=== PATIENT | female | born 1975 | race Caucasian/White ===

== ENCOUNTER 2016-08-17 02:03 | Inpatient (IN) ==
[2016-08-17 02:25] LABS: Bilirubin,Urine Small (Negative); Blood,Urine Negative (Negative); Clarity,Urine Clear (Clear); Color,Urine Yellow (Yellow); Glucose,Urine (UA) Normal (Normal); Ketones,Urine Negative (Negative); Leukocyte Esterase,Urine Moderate (Negative); Nitrite,Urine Negative (Negative); Protein,Urine Negative (Neg-Trace); Specific Gravity,Urine 1.016 (1.010-1.025); Urobilinogen,Urine Normal (Normal)
[2016-08-17 02:27] LABS: Bacteria,Urine None Seen per hpf (None-Few); Hyaline Casts,Urine None Seen per lpf (None-Few); Squamous Epithelial Cell,Urine Many per lpf (None-Few); WBC,Urine 15-30 per hpf (0-3)
[2016-08-17] MEDS ORDERED: *HR* OxyCODONE/APAP 5/325 TABLET PO ONE (02:56)
[2016-08-17] MEDS ORDERED: Ketorolac 30 MG/ML VIAL IM ONE (02:56)
[2016-08-17 03:34] LABS: Basophils # 0.1 K/mcL (0.0-0.2); Basophils % 0.3 %; Eosinophils # 0.2 K/mcL (0.0-0.6); Eosinophils % 0.8 %; Hematocrit 38.1 % (35.3-44.9); Hemoglobin 12.3 g/dL (11.5-15.4); Immature Granulocytes % 0.4 % (0-4); Lymphocytes # 3.5 K/mcL (0.6-4.6); Mean Corpuscular HGB Conc 32.3 g/dL (31.6-35.5); Mean Corpuscular Hemoglobin 26.7 pg (28.0-33.3); Mean Corpuscular Volume 82.8 fL (83.0-100.0); Mean Platelet Volume 9.4 fL (9.4-12.4); Monocytes # 0.9 K/mcL (0.0-1.3); Monocytes % 4.5 %; Neutrophils # 15.8 K/mcL (1.6-8.9); Platelet Count 349 K/mcL (140-400); Red Cell Distribution Width 18.5 % (11.5-14.5)
[2016-08-17] MEDS ORDERED: 0.9 % Sodium Chloride 1,000 ML IVC ONE (03:41)
[2016-08-17 03:44] LABS: BUN/Creatinine Ratio 8 (6-26); Blood Urea Nitrogen 7 mg/dL (7-20); Calcium 9.4 mg/dL (8.6-10.8); Carbon Dioxide 22 mEq/L (19-29); Chloride 106 mEq/L (98-109); Glucose 98 mg/dL (70-99); Osmolality,Calculated 286 (280-300); Potassium 3.9 mEq/L (3.5-4.5); Sodium 139 mEq/L (136-145); eGFR For African Americans > 60 (> 60); eGFR For Non-African Americans > 60 (> 60)
[2016-08-17] MEDS ORDERED: *HR* HYDROmorphone 2 MG/ML SYRINGE IVP ONE (03:56)
--- NOTE | 2016-08-17 03:57 | Emergency Department Note ---
START Narrative - START START: I examined this patient and my medical decision-making was reviewed with the EVENTS ADMINISTRATIVE ASSISTANT/PA/Advanced Practice Nurse/Resident Physician. I agree with the documented findings, disposition and treatment plan as described except to the extent set forth below. Patient to ED with bilateral flank pain. Patient seen a few days ago and diagnosed with pyelonephritis. She has been taking Keflex beginning worse. On examination she is rocking in the bed and very uncomfortable. Abdomen soft. Bilateral CVA tenderness with percussion. Plan. Patient appears without outpatient treatment. White count 20,000. She meets sepsis criteria. IV antibiotic and admit.
[2016-08-17] MEDS ORDERED: 0.9 % Sodium Chloride 1,000 ML IVC SCH (04:00)
--- NOTE | 2016-08-17 04:12 | Emergency Department Note ---
Disposition Clinical Impression: Pyelonephritis Disposition: Admitted As Inpatient Referrals: Minesh Terry CNP [Primary Care Provider] - Forms: ED Satisfaction Letter Time of Disposition: 04:18 Female Urogenital HPI - General Chief complaint: ED Urogenital-Female Stated complaint: "bilateral kidney pain" Time Seen by Provider: 08/17/16 02:49 Source: patient Mode of arrival: ambulatory Limitations: no limitations Nursing Notes Reviewed: Yes Vital Signs Reviewed: Yes - History of Present Illness HPI Narrative: Patient is a 41-year-old female that ambulates to the ED with chief complaint bilateral flank pain, dysuria, urinary urgency/frequency, nausea and fever 1 week. Patient states that she was seen in our ER on 08/13/16 and diagnosed with pyelonephritis. Patient was discharged home with Keflex. Patient returns here today because of worsening symptoms. States highest recorded temperature was 100.1 degrees Fahrenheit today. Denies any chest pain, shortness of breath, vaginal discharge, weakness, vomiting or diarrhea. History of hysterectomy Pt Subjective Complaint: dysuria, "UTI", other (Bilateral flank pain) Onset (ago): week(s) Radiation: suprapubic Severity: moderate Severity scale (1-10): 9 Quality: cramping, burning Duration: intermittent Improves with: none Worsens with: none Urinary Symptoms: dysuria, urgency, frequency, hematuria, foul smelling urine, difficulty urinating, flank pain Sexual activity: yes : no Associated symptoms: Reports: denies other symptoms, abdominal pain (Lower abdominal cramping), nausea/vomiting (Nausea no vomiting), fever/chills. Denies : abnormal vaginal discharge, abnormal vaginal bleeding, headaches, loss of appetite, , rash, seizure, shortness of breath, syncope, weakness - Related Data Home Medications Medication Instructions Recorded Confirmed Amitriptyline [Elavil] 150 mg PO HS 01/15/16 05/28/16 FLUoxetine HCl [Prozac] 40 mg PO HS 01/15/16 05/28/16 Gabapentin [Neurontin] 600 mg PO TID 01/15/16 05/28/16 Albuterol Sulfate [Ventolin Hfa] 2 puff IH Q4H PRN 05/28/16 05/28/16 Budesonide/Formoterol 160/4.5 2 puff IH BIDR 05/28/16 05/28/16 [Symbicort 160/4.5] Buspirone HCl [Buspar] 10 mg PO BID PRN 05/28/16 05/28/16 DiphenhydraMINE [Benadryl] 25 mg PO BID PRN 05/28/16 05/28/16 Docusate [Colace] 100 mg PO BID PRN 05/28/16 05/28/16 Ipratropium/Albuterol Neb [Duoneb] 3 ml IH Q6HR PRN 05/28/16 05/28/16 LORazepam [Ativan] 1 mg PO TID PRN 05/28/16 05/28/16 Nitroglycerin [Nitrostat] 0.4 mg SL AD PRN 05/28/16 05/28/16 Promethazine HCl 12.5 - 25 mg PO Q8H PRN 05/28/16 05/28/16 Ranitidine HCl [Zantac] 150 mg PO HS 05/28/16 05/28/16 Previous Rx's Medication Instructions Recorded Cephalexin [Keflex] 500 mg PO BID 10 Days 08/13/16 Phenazopyridine HCl [Pyridium] 200 mg PO TIDAC #6 tab 08/13/16 Allergies Allergy/AdvReac Type Severity Reaction Status Date / Time No Known Allergies Allergy Verified 08/17/16 02:10 All systems ED: reviewed and negative except as stated. Constitutional: Reports: fever, chills Cardiovascular: Denies: chest pain Respiratory: Denies: dyspnea Gastrointestinal: Reports: abdominal pain, nausea. Denies: vomiting, diarrhea, constipation, hematemesis, melena, hematochezia Genitourinary: Reports: urgency, dysuria, frequency, hematuria. Denies: discharge, dyspareunia, genital lesions Musculoskeletal: Reports: back pain Integumentary: Denies: rash Neurological: Denies: weakness, numbness, paresthesias Past Medical History - Past Medical History Source: patient Medical history: Reports: COPD, GERD, hypertension, seizures, other Surgical history: Reports: appendectomy, cholecystectomy, herniorrhaphy, hysterectomy, other Psychiatric history: Reports: anxiety, depression, panic disorder ENTRY SPECIALIST history: Reports: endometriosis - Social History Smoking Status: Current every day smoker Smokeless Tobacco Status: No Alcohol use: Reports: none Drug use: Reports: none Physical Exam - General Limitations: no limitations General appearance: alert, in no apparent distress - Head Head exam: normal inspection - Eye Eye exam: Present: normal appearance - ENT ENT exam: mucous membranes moist - Neck Neck exam: Present: normal inspection - Chest Chest inspection: Present: symmetric chest wall rise - Respiratory Respiratory exam: Present: normal lung sounds bilaterally - Cardiovascular Cardiovascular exam: Present: normal rhythm, tachycardia - Abdominal Exam Abdominal exam: Present: soft, tenderness (Mild Lower abdominal tenderness with palpation), normal bowel sounds. Absent: distention, guarding, rebound, rigidity - Extremities Exam Extremities exam: Present: normal inspection - Expanded Lower Extremity Exam Gait: observed and normal - Back Exam Back exam: Present: normal inspection, full ROM, CVA tenderness (R), CVA tenderness (L). Absent: rashes - Neurological Exam Neurological exam: Present: alert, oriented X3, CN II-XII intact, normal gait - Psychiatric Psychiatric exam: Present: normal affect, normal mood - Skin Skin exam: Present: warm, dry, intact, normal color. Absent: rash, cyanosis, diaphoresis Course - Reevaluation(s) Reevaluation #1: Patient is a 41-year-old female that ambulates to the ED with chief complaint bilateral flank pain, dysuria, urinary urgency/frequency, nausea and fever 1 week. Patient states that she was seen in our ER on 08/13/16 and diagnosed with pyelonephritis. Patient was discharged home with Keflex. Patient returns here today because of worsening symptoms. States highest recorded temperature was 100.1 degrees Fahrenheit today. Denies any chest pain, shortness of breath, vaginal discharge, weakness, vomiting or diarrhea. History of hysterectomy Patient is a 41-year-old female. Afebrile. Alert and oriented 3. No signs of dehydration. Heart: Tachycardia. Lungs CTAB : Normal inspection, soft, diffuse lower abdominal tenderness with palpation. No guarding or rebound noted. Normal bowel sounds. Back normal inspection, right and left cva tenderness with palpation. Extremities within normal limits. Neuro no focal neurological deficits noted on exam. Labs, UA ordered. IV fluids, pain and nausea medications given. Plan to reevaluate. Reviewed previous encounter from 08/13/16. Previous urine culture showed mixed margaret. UA indicate UTI. WBC 20,000. Repeat HR 71 CT shows no definite acute intra-abdominal or intrapelvic process. Punctate 2 mm nonobstructing calculus within the right kidney lower pole, without evidence of ureteral calculus or hydronephrosis Blood cultures obtained. Cipro and Rocephin given in ED. Plan to admit for failed outpatient treatment of UTI and sepsis. Patient agrees to treatment plan. Pain has improved. Dr. Russell had [id number] time with patient and agrees with assessment and treatment plan. Discussed case with the hospitalist. He will accept the patient. No other request at this time. Vital Signs Temperature 98.8 F 08/17/16 02:07 Pulse Rate 127 08/17/16 02:07 Respiratory Rate 18 08/17/16 02:07 Blood Pressure 130/93 08/17/16 02:07 O2 Sat by Pulse Oximetry 94 08/17/16 02:07 Temperature 98.8 F 08/17/16 02:07 Pulse Rate 71 08/17/16 04:47 Respiratory Rate 18 08/17/16 04:47 Blood Pressure 107/77 08/17/16 04:47 O2 Sat by Pulse Oximetry 99 08/17/16 04:47 Oxygen Delivery Oxygen Delivery Room Air Urogenital-Female - Medical Records Medical records reviewed: Yes I reviewed the patient's medical records. - Lab Data Lab results reviewed: Yes I reviewed the patient's lab results. Result diagrams: 08/17/16 03:28 08/17/16 03:28 Lab Results 08/17/16 08/17/16 08/17/16 Range/Units 02:20 03:28 03:28 WBC 20.5 H (4.3-11.1) K/mcL RBC 4.60 (3.82-4.97) M/mcL Hgb 12.3 (11.5-15.4) g/dL Hct 38.1 (35.3-44.9) % MCV 82.8 L (83.0-100.0) fL MCH 26.7 L (28.0-33.3) pg MCHC 32.3 (31.6-35.5) g/dL RDW 18.5 H (11.5-14.5) % Plt Count 349 (140-400) K/mcL MPV 9.4 (9.4-12.4) fL Immature Gran % 0.4 (0-4) % Seg Neutrophils % 77.0 % Lymphocytes % 17.0 % Monocytes % 4.5 % Eosinophils % 0.8 % Basophils % 0.3 % Neutrophils # 15.8 H (1.6-8.9) K/mcL Lymphocytes # 3.5 (0.6-4.6) K/mcL Monocytes # 0.9 (0.0-1.3) K/mcL Eosinophils # 0.2 (0.0-0.6) K/mcL Basophils # 0.1 (0.0-0.2) K/mcL Sodium 139 (136-145) mEq/L Potassium 3.9 (3.5-4.5) mEq/L Chloride 106 (98-109) mEq/L Carbon Dioxide 22 (19-29) mEq/L BUN 7 (7-20) mg/dL Creatinine 0.85 (0.57-1.11) mg/dL Est GFR ( Amer) > 60 (> 60) Est GFR (Non-Af Amer) > 60 (> 60) BUN/Creatinine Ratio 8 (6-26) Glucose 98 (70-99) mg/dL Calculated Osmolality 286 (280-300) Lactic Acid (0.5-2.2) mmol/L Calcium 9.4 (8.6-10.8) mg/dL Urine Color Yellow (Yellow) Urine Clarity Clear (Clear) Urine pH 6.0 (5.0-8.0) pH Units Ur Specific [place] 1.016 (1.010-1.025) Urine Protein Negative (Neg-Trace) mg/dL Urine Glucose (UA) Normal (Normal) mg/dL Urine Ketones Negative (Negative) mg/dL Urine Blood Negative (Negative) Urine Nitrite Negative (Negative) Urine Bilirubin Small H (Negative) Urine Urobilinogen Normal (Normal) mg/dL Ur Leukocyte Esterase Moderate H (Negative) Urine Microscopic RBC 5-15 H (0-3) per hpf Urine Microscopic WBC 15-30 H (0-3) per hpf Ur Squamous Epith Cells Many H (None-Few) per lpf Urine Bacteria None Seen (None-Few) per hpf Hyaline Casts None Seen (None-Few) per lpf Ur Culture Indicated? YES A (NO) 08/17/16 Range/Units 04:49 WBC (4.3-11.1) K/mcL RBC (3.82-4.97) M/mcL Hgb (11.5-15.4) g/dL Hct (35.3-44.9) % MCV (83.0-100.0) fL MCH (28.0-33.3) pg MCHC (31.6-35.5) g/dL RDW (11.5-14.5) % Plt Count (140-400) K/mcL MPV (9.4-12.4) fL Immature Gran % (0-4) % Seg Neutrophils % % Lymphocytes % % Monocytes % % Eosinophils % % Basophils % % Neutrophils # (1.6-8.9) K/mcL Lymphocytes # (0.6-4.6) K/mcL Monocytes # (0.0-1.3) K/mcL Eosinophils # (0.0-0.6) K/mcL Basophils # (0.0-0.2) K/mcL Sodium (136-145) mEq/L Potassium (3.5-4.5) mEq/L Chloride (98-109) mEq/L Carbon Dioxide (19-29) mEq/L BUN (7-20) mg/dL Creatinine (0.57-1.11) mg/dL Est GFR ( Amer) (> 60) Est GFR (Non-Af Amer) (> 60) BUN/Creatinine Ratio (6-26) Glucose (70-99) mg/dL Calculated Osmolality (280-300) Lactic Acid 1.8 (0.5-2.2) mmol/L Calcium (8.6-10.8) mg/dL Urine Color (Yellow) Urine Clarity (Clear) Urine pH (5.0-8.0) pH Units Ur Specific [place] (1.010-1.025) Urine Protein (Neg-Trace) mg/dL Urine Glucose (UA) (Normal) mg/dL Urine Ketones (Negative) mg/dL Urine Blood (Negative) Urine Nitrite (Negative) Urine Bilirubin (Negative) Urine Urobilinogen (Normal) mg/dL Ur Leukocyte Esterase (Negative) Urine Microscopic RBC (0-3) per hpf Urine Microscopic WBC (0-3) per hpf Ur Squamous Epith Cells (None-Few) per lpf Urine Bacteria (None-Few) per hpf Hyaline Casts (None-Few) per lpf Ur Culture Indicated? (NO) - Radiology Data Radiology results reviewed: Yes I reviewed the patient's radiology results.
[2016-08-17] MEDS ORDERED: Ondansetron 4 MG/2 ML VIAL IVP PRN (08:46)
[2016-08-17] MEDS ORDERED: Ipratropium/Albuterol Neb 3 ML IH PRN (09:24)
--- NOTE | 2016-08-17 09:32 | Internal Med History&Physical ---
Date of Encounter: 08/17/16 Time of Encounter: 09:30 Assessment and Plan (1) COPD (chronic obstructive pulmonary disease) Current visit: No Status: Chronic Stable normoactive wheezing continue PRN nebulizer treatments. Qualifiers: Qualified Code(s): J44.9 - Chronic obstructive pulmonary disease, unspecified (2) Pyelonephritis Current visit: Yes Status: Acute Patient presents with bilateral flank pain frequency urgency and fever up to 100.1. She had failed outpatient 3 days of antibiotic with keflex. She has prior history of E. coli and enterococcus in urine. She has a white count of 20 ,000 and meet sepsis criteria. I will therefore start the patient on broad- spectrum antibiotics to cover for Gram negatives with cefepime and cover for enterococcus with vancomycin. CT scan was performed showed no evidence of obstructive uropathy. (3) Sepsis Current visit: No Status: Acute Patient meets criteria for sepsis white count 20,000 tachycardic on presentation and sources urine. 2 L of normal saline were given in the emergency room. Continue normal saline 100 mls an hour. Broad-spectrum antibiotics. She is not hypotensive. Follow urine output. Qualifiers: Qualified Code(s): A41.9 - Sepsis, unspecified organism Internal Medicine - H&P: HPI Chief complaint: flank pain, dysuria History of present illness: Ms. Silva is a 41 year old female presents to the emergency room today with the main complain of bilateral flank pain. Patient was diagnosed with rain check infection 5 days ago and was started on Keflex to which she was compliance for the past 3 days. Patient notices no improvement in her symptoms. Continues to have bilateral flank pain, fevers up 200.1 at home, chills, nausea in addition to urinary symptoms in the form of urgency frequency. She denies any increase sputum production. CT scan performed emergency room shows no evidence of obstructive uropathy. Past Med Surg Social Fam HX - Past Medical History Medical history: COPD, GERD, hypertension, seizures, other Psychiatric history: anxiety, depression, panic disorder - Past Surgical History Surgical History: appendectomy, cholecystectomy, herniorrhaphy, hysterectomy, other - Social History Smoking Status: Current every day smoker Packs per day: 1.2 Smokeless Tobacco Status: No Alcohol use: none Drug use: none - Family History Father Living Status: Still Living Hx Family Cardiac Disorders: Yes (pacemaker) Mother Hx Family Cardiac Disorders: Yes (atrial fibrillation) Internal Medicine - H&P: Meds Amitriptyline [Elavil] 150 mg PO HS 01/15/16 [History] FLUoxetine HCl [Prozac] 40 mg PO HS 01/15/16 [History] Gabapentin [Neurontin] 600 mg PO TID 01/15/16 [History] Albuterol Sulfate [Ventolin Hfa] 2 puff IH Q4H PRN 05/28/16 [History] Budesonide/Formoterol 160/4.5 [Symbicort 160/4.5] 2 puff IH BIDR 05/28/16 [ History] Buspirone HCl [Buspar] 10 mg PO BID PRN 05/28/16 [History] DiphenhydraMINE [Benadryl] 25 mg PO BID PRN 05/28/16 [History] Docusate [Colace] 100 mg PO BID PRN 05/28/16 [History] Ipratropium/Albuterol Neb [Duoneb] 3 ml IH Q6HR PRN 05/28/16 [History] LORazepam [Ativan] 1 mg PO TID PRN 05/28/16 [History] Nitroglycerin [Nitrostat] 0.4 mg SL AD PRN 05/28/16 [History] Promethazine HCl 12.5 - 25 mg PO Q8H PRN 05/28/16 [History] Ranitidine HCl [Zantac] 150 mg PO HS 05/28/16 [History] Cephalexin [Keflex] 500 mg PO BID 10 Days 08/13/16 [Rx] Phenazopyridine HCl [Pyridium] 200 mg PO TIDAC #6 tab 08/13/16 [Rx] Allergies No Known Allergies Allergy (Verified 08/17/16 02:10) All Systems PM: A 10-system review of systems was performed and is negative for pertinent findings except as documented above in the HPI. Review of systems: 10 point review of systems is negative except for HPI. - Constitutional Vitals: Temp Pulse Resp BP Pulse Ox 97.3 F L 83 18 112/62 93 08/17/16 07:57 08/17/16 07:57 08/17/16 07:57 08/17/16 07:57 08/17/16 07:57 Exam: Gen.: patient is alert oriented times 3 not in distress. Cardiac: normal S1 S2 no additional sounds or murmurs chest: fair air entry. no active wheezing. No crackles or bronchial breathing. abdomen: soft tenderness in left lower quadrant Back: bilateral CVA tenderness neuro: no focal deficit Internal Med - H&P Results - Labs CBC & Chem 7: 08/17/16 03:28 08/17/16 03:28
[2016-08-17] MEDS: Budesonide/Formoterol 160/4.5 MDI IH SCH ×2 (11:16→20:22)
[2016-08-17] MEDS: *HR* OxyCODONE/APAP 5/325 TABLET PO PRN ×2 (11:31→20:32)
[2016-08-17] MEDS: Vancomycin 1,500 MG in D5% in Water 250 ML IVPB SCH (11:32)
[2016-08-17] MEDS ORDERED: Aminoglycoside Consult 1 EACH MC ONE (11:59)
[2016-08-17] MEDS: Gabapentin 300 MG CAPSULE PO SCH ×2 (14:37→20:33)
[2016-08-17] MEDS: *HR* Heparin 5,000 UNIT/ML VIAL SQ SCH ×2 (14:37→22:16)
[2016-08-17] MEDS: Famotidine 20 MG/2 ML VIAL IVP SCH (17:17)
[2016-08-17] MEDS: Cefepime HCl 1,000 MG in D5% in Water (Mini-Bag+) 100 ML IVPB SCH (17:17)
[2016-08-17] MEDS: 0.9 % Sodium Chloride 1,000 ML IVC SCH (19:59)
[2016-08-17] MEDS ORDERED: clonazePAM 1 MG TABLET PO PRN (20:48)
[2016-08-17] MEDS ORDERED: FLUoxetine 20 MG CAPSULE PO SCH (21:00)
[2016-08-18] MEDS: Vancomycin 1,500 MG in D5% in Water 250 ML IVPB SCH (02:59)
[2016-08-18] MEDS: Cefepime HCl 1,000 MG in D5% in Water (Mini-Bag+) 100 ML IVPB SCH (05:15)
[2016-08-18] MEDS: *HR* Heparin 5,000 UNIT/ML VIAL SQ SCH (05:15)
[2016-08-18] MEDS: Famotidine 20 MG/2 ML VIAL IVP SCH (05:16)
[2016-08-18 06:11] LABS: Basophils % 0.6 %; Eosinophils # 0.5 K/mcL (0.0-0.6); Hematocrit 35.5 % (35.3-44.9); Hemoglobin 11.3 g/dL (11.5-15.4); Immature Granulocytes % 0.5 % (0-4); Lymphocytes # 2.6 K/mcL (0.6-4.6); Lymphocytes % 40.9 %; Mean Corpuscular HGB Conc 31.8 g/dL (31.6-35.5); Mean Corpuscular Volume 84.9 fL (83.0-100.0); Monocytes # 0.5 K/mcL (0.0-1.3); Monocytes % 7.5 %; Neutrophils # 2.7 K/mcL (1.6-8.9); Platelet Count 306 K/mcL (140-400); Red Blood Count 4.18 M/mcL (3.82-4.97); Red Cell Distribution Width 18.6 % (11.5-14.5); Segmented Neutrophils % 42.5 %
[2016-08-18 06:25] LABS: BUN/Creatinine Ratio 14 (6-26); Blood Urea Nitrogen 11 mg/dL (7-20); Calcium 8.6 mg/dL (8.6-10.8); Carbon Dioxide 22 mEq/L (19-29); Chloride 109 mEq/L (98-109); Glucose 122 mg/dL (70-99); Magnesium 2.2 mg/dL (1.6-2.6); Osmolality,Calculated 291 (280-300); Potassium 3.8 mEq/L (3.5-4.5); Sodium 140 mEq/L (136-145); eGFR For African Americans > 60 (> 60); eGFR For Non-African Americans > 60 (> 60)
[2016-08-18] MEDS: Gabapentin 300 MG CAPSULE PO SCH (08:14)
[2016-08-18] MEDS: Budesonide/Formoterol 160/4.5 MDI IH SCH (08:21)
[2016-08-18] MEDS: *HR* OxyCODONE/APAP 5/325 TABLET PO PRN (11:12)
[2016-08-18] MEDS: 0.9 % Sodium Chloride 1,000 ML IVC SCH (11:15)
[2016-08-18 11:30] VITALS: BP 147/91
[2016-08-18] MEDS ORDERED: Nicotine 21 MG PATCH.TD24 TD SCH (11:45)
--- NOTE | 2016-08-18 11:53 | Discharge Summary ---
Date of Encounter: 08/19/16 Time of Encounter: 11:48 - Discharge Diagnosis (1) Sepsis Priority: Primary Status: Acute Qualifiers: Sepsis type: sepsis due to unspecified organism Qualified Code(s): A41.9 - Sepsis, unspecified organism (2) Pyelonephritis Priority: Primary Status: Acute - Discharge Medications Home Medications: FLUoxetine HCl [Prozac] 40 mg PO HS 01/15/16 [History] Gabapentin [Neurontin] 600 mg PO TID 01/15/16 [History] Albuterol Sulfate [Ventolin Hfa] 2 puff IH Q4H PRN 05/28/16 [History] Budesonide/Formoterol 160/4.5 [Symbicort 160/4.5] 2 puff IH BIDR 05/28/16 [ History] Buspirone HCl [Buspar] 30 mg PO BID PRN 05/28/16 [History] Docusate [Colace] 100 mg PO BID PRN 05/28/16 [History] Ranitidine HCl [Zantac] 150 mg PO HS 05/28/16 [History] Quetiapine Fumarate [Seroquel] 50 mg PO TID PRN 08/17/16 [History] clonazePAM [Clonazepam] 1 mg PO TID PRN 08/17/16 [History] Nitroglycerin [Nitrostat] 0.4 mg SL ONCE PRN 08/18/16 [History] Promethazine HCl 12.5 - 25 mg PO Q8H PRN 08/18/16 [History] Allergies/Adverse Reactions: Allergies No Known Allergies Allergy (Verified 08/17/16 02:10) Date of admission: 08/17/16 09:21 Primary care physician: Minesh Terry CNP Discharging clinician: Evangelist Wesley Anticipated date of discharge: 08/18/16 - Patient Status Disposition: Left Against Medical Advice Condition: Fair Functional capacity at discharge: independent ambulation Overall status at discharge: patient is back to baseline - Discharge Instructions Follow Up With: Minesh Terry CNP [Primary Care Provider] - - Diet and Activity Activity: resume usual activities as tolerated Diet: advance to your usual diet Interval History: Patient admitted with sepsis secondary to pyelonephritis. Patient was treated with IV antibiotics overnight, at the bedside patient reports resolution of pain today. Antibiotics was disease completed today and plan was to observe for 1 day, however patient signed out AMA. Hospital course: Ms. Silva is a 41 year old female - Time Spent with Patient Total time spent providing and/or coordinating discharge services: - Constitutional Vitals: Temp Pulse Resp BP Pulse Ox 98.2 F 88 18 147/91 96 08/18/16 11:26 08/18/16 11:26 08/18/16 11:26 08/18/16 11:26 08/18/16 11:26 Exam: Exam could not be completed as patient signed out AMA
[2016-08-18] MEDS ORDERED: Ampicillin/Sulbactam 3,000 MG in 0.9 % Sodium Chloride Mini Bag 100 ML IVPB SCH (12:00)
[2016-08-18] MEDS ORDERED: Vancomycin 1,500 MG in D5% in Water 250 ML IVPB SCH (15:00)
== END 2016-08-18 12:00 | disposition left against medical advice (07) | DRG 720 ==
LOC: 3ANU 02:03 → EMEROO 02:03 → 3ANU 05:40
PROVIDERS: ADMIT Internal Medicine; ATTEND Internal Medicine Endocrinology, Diabetes & Metabolism

== ENCOUNTER 2017-05-16 21:06 | Observation (INO) ==
[2017-05-16 21:42] LABS: Basophils # 0.1 K/mcL (0.0-0.2); Basophils % 0.9 %; Eosinophils # 0.7 K/mcL (0.0-0.6); Eosinophils % 7.4 %; Hematocrit 37.4 % (35.3-44.9); Hemoglobin 12.4 g/dL (11.5-15.4); Immature Granulocytes % 0.2 % (0-4); Lymphocytes # 3.4 K/mcL (0.6-4.6); Lymphocytes % 35.6 %; Mean Corpuscular HGB Conc 33.2 g/dL (31.6-35.5); Mean Corpuscular Hemoglobin 28.2 pg (28.0-33.3); Mean Platelet Volume 9.1 fL (9.4-12.4); Monocytes # 0.7 K/mcL (0.0-1.3); Monocytes % 7.2 %; Neutrophils # 4.7 K/mcL (1.6-8.9); Platelet Count 362 K/mcL (140-400); Red Cell Distribution Width 15.7 % (11.5-14.5); Segmented Neutrophils % 48.7 %
[2017-05-16 21:49] LABS: Prothrombin Time 11.2 Seconds (9.4-12.1)
[2017-05-16] MEDS ORDERED: *HR* Nalbuphine 20 MG/ML AMPUL IVP ONE ×2 (21:52→21:53)
[2017-05-16] MEDS ORDERED: Aspirin 325 MG TABLET PO ONE (21:53)
[2017-05-16 22:04] LABS: Troponin I < 0.03 ng/mL (< 0.04)
[2017-05-16 22:06] LABS: BUN/Creatinine Ratio 15 (6-26); Blood Urea Nitrogen 15 mg/dL (6-20); Calcium 9.5 mg/dL (8.6-10.3); Carbon Dioxide 22 mEq/L (23-29); Chloride 108 mEq/L (98-107); Glucose 118 mg/dL (70-105); Osmolality,Calculated 288 (280-300); Potassium 4.1 mEq/L (3.5-5.1); Sodium 138 mEq/L (136-145); eGFR For African Americans > 60 (> 60); eGFR For Non-African Americans > 60 (> 60)
[2017-05-16] MEDS ORDERED: methylPREDNISolone 125 MG/2 ML VIAL IVP ONE (22:10)
[2017-05-16] MEDS ORDERED: Nitroglycerin 1 INCH/GM PACKET TP ONE (22:41)
--- NOTE | 2017-05-16 22:41 | Emergency Department Note ---
Disposition Clinical Impression: Unstable angina Disposition: Admitted As Inpatient Condition: Fair Referrals: Minesh Terry CNP [Primary Care Provider] - Time of Disposition: 22:41 Chest Pain HPI - General Chief Complaint: ED Chest Pain Stated Complaint: chest pain Time Seen by Provider: 05/16/17 21:35 Source: patient, family Mode of arrival: ambulatory Limitations: no limitations Vital Signs Reviewed: Yes Nursing Notes Reviewed: Yes - History of Present Illness HPI Narrative: 42-year-old female presents him observe for chest pain. When started around 3: 30 today while sitting at home. She describes it as left anterior chest wall that radiates up into her neck and left jaw. She took nitroglycerin home without any relief. Aspirin aspirin was given in route by EMS. She states she has a history of a previous cardiac catheter years ago that she had done for chest pain but they did not have to put any Shanelle. Nothing seems to worsen her symptoms. She does feels short of breath with it. Some diaphoresis she states today. No vomiting. She does have smoking history and currently smokes at least 10 cigarettes per day. Severity scale (1-10): 9 - Related Data Home Medications Medication Instructions Recorded Confirmed FLUoxetine HCl [Prozac] 40 mg PO BID 01/15/16 04/22/17 Buspirone HCl [Buspar] 30 mg PO BID PRN 05/28/16 04/22/17 Budesonide/Formoterol 160/4.5 2 puff IH BIDR 04/22/17 04/22/17 [Symbicort 160/4.5] Dicyclomine [Bentyl] 10 mg PO QID 04/22/17 04/22/17 Diphenhydramine HCl [Z-Sleep] 25 mg PO DAILY PRN 04/22/17 04/22/17 Ipratropium/Albuterol Neb [Duoneb] 3 ml IH Q6HR 04/22/17 04/22/17 OLANZapine [Zyprexa] 10 mg PO DAILY 04/22/17 04/22/17 Omeprazole [PriLOSEC] 20 mg PO DAILY 04/22/17 04/22/17 Ondansetron HCl 8 mg PO TID PRN 04/22/17 04/22/17 Pravastatin Sodium 10 mg PO HS 04/22/17 04/22/17 Quetiapine Fumarate [Seroquel] 50 mg PO TID 04/22/17 04/22/17 Ziprasidone [Geodon] 20 mg PO HS 04/22/17 04/22/17 diazePAM [Valium] 10 mg PO BID 04/22/17 04/22/17 Allergies Allergy/AdvReac Type Severity Reaction Status Date / Time haloperidol AdvReac Agitated Verified 03/23/17 11:16 Review of Systems: Gen.: No fevers or chills or new weakness Eyes: Denies double vision or any vision changes Ears: Denies any otalgia Pharynx: Denies sore throat CV: Positive for chest pain Respiratory: Denies any cough or sputum production. No shortness of breath. GI: Denies any nausea, vomiting, diarrhea, constipation. Denies abdominal pain Neuro: Denies any headache. No problems with ambulation. No numbness. 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 Pharynx clear with no exudates. Oral mucosa moist. Uvula midline. TMs clear bilaterally. Trachea midline. No lymphadenopathy. Heart: Regular rate and rhythm. Normal S1 and S2. No gallops, rubs, or murmurs. Lungs: Clear to auscultation bilaterally. No evidence of any rhonchi wheezing or rales. No pain on palpation of the chest wall Abdomen: Soft nontender nondistended. Positive bowel sounds. No peritoneal signs. Extremities: No evidence of cyanosis clubbing or edema. Neuro: Cranial nerves II through XII grossly intact. No focal motor or sensory deficits. Speech is clear. Skin: Normal color. dry. Psych: normal mentation. - General Limitations: no limitations General appearance: alert, in no apparent distress Course Vital Signs Temperature 97.3 F L 05/16/17 21:08 Pulse Rate 101 05/16/17 21:08 Respiratory Rate 18 05/16/17 21:08 Blood Pressure 137/88 05/16/17 21:08 O2 Sat by Pulse Oximetry 97 05/16/17 21:08 Temperature 97.3 F L 05/16/17 21:08 Pulse Rate 84 05/16/17 22:28 Respiratory Rate 18 05/16/17 22:28 Blood Pressure 123/93 05/16/17 22:28 O2 Sat by Pulse Oximetry 91 05/16/17 22:28 Oxygen Delivery Oxygen Delivery Room Air Chest Pain - MDM Narrative Medical decision making narrative: Patient's EKG did not reveal any acute abnormalities. Troponin was negative. Chest x-ray negative. Patient had a suspicious story and did not appear well on my exam. Based on her risk factors I feel she needs to be admitted for ACS rule out. - Medical Records Medical records reviewed: Yes I reviewed the patient's medical records. - Lab Data Lab results reviewed: Yes I reviewed the patient's lab results. Result diagrams: 05/16/17 21:32 05/16/17 21:32 Lab Results 05/16/17 05/16/17 05/16/17 Range/Units 21:32 21:32 21:32 WBC 9.6 (4.3-11.1) K/mcL RBC 4.40 (3.82-4.97) M/mcL Hgb 12.4 (11.5-15.4) g/dL Hct 37.4 (35.3-44.9) % MCV 85.0 (83.0-100.0) fL MCH 28.2 (28.0-33.3) pg MCHC 33.2 (31.6-35.5) g/dL RDW 15.7 H (11.5-14.5) % Plt Count 362 (140-400) K/mcL MPV 9.1 L (9.4-12.4) fL Immature Gran % 0.2 (0-4) % Seg Neutrophils % 48.7 % Lymphocytes % 35.6 % Monocytes % 7.2 % Eosinophils % 7.4 % Basophils % 0.9 % Neutrophils # 4.7 (1.6-8.9) K/mcL Lymphocytes # 3.4 (0.6-4.6) K/mcL Monocytes # 0.7 (0.0-1.3) K/mcL Eosinophils # 0.7 H (0.0-0.6) K/mcL Basophils # 0.1 (0.0-0.2) K/mcL PT 11.2 (9.4-12.1) Seconds INR 1.0 APTT 34.0 (26.0-36.0) Seconds Sodium 138 (136-145) mEq/L Potassium 4.1 (3.5-5.1) mEq/L Chloride 108 H (98-107) mEq/L Carbon Dioxide 22 L (23-29) mEq/L BUN 15 (6-20) mg/dL Creatinine 0.98 (0.60-1.20) mg/dL Est GFR ( Amer) > 60 (> 60) Est GFR (Non-Af Amer) > 60 (> 60) BUN/Creatinine Ratio 15 (6-26) Glucose 118 H (70-105) mg/dL Calculated Osmolality 288 (280-300) Calcium 9.5 (8.6-10.3) mg/dL Troponin I < 0.03 (< 0.04) ng/mL - Radiology Data Radiology results reviewed: Yes I reviewed the patient's radiology results. - EKG Data EKG attestation: Yes I reviewed and interpreted this EKG. EKG results narrative: EKG shows a rate of 97. No sinus rhythm. Normal axis. AL interval 146. QRS 96. QTC 393. No signs of ischemia
[2017-05-17] MEDS ORDERED: Ibuprofen 400 MG TABLET PO ONE (05:07)
[2017-05-17] MEDS ORDERED: Naloxone 0.4 MG/ML INJ IVP PRN (08:25)
[2017-05-17] MEDS ORDERED: Acetaminophen 325 MG TABLET PO PRN (08:25)
[2017-05-17] MEDS: *HR* HYDROcodone/Acet 5/325 mg TABLET PO PRN ×2 (09:45→20:22)
[2017-05-17] MEDS ORDERED: Ondansetron ODT 4 MG TAB.RAPDIS PO PRN (10:23)
[2017-05-17] MEDS ORDERED: Nicotine 14 MG PATCH.TD24 TD SCH (10:30)
--- NOTE | 2017-05-17 10:45 | Internal Med History&Physical ---
Date of Encounter: 05/17/17 Time of Encounter: 10:40 Assessment and Plan (1) Depression Current visit: Yes Status: Acute Continue with buspirone and fluoxetine. Qualifiers: Depression Type: major depressive disorder Major depression recurrence: recurrent Active/Remission status: in remission of unspecified degree Qualified Code(s): F33.40 - Major depressive disorder, recurrent, in remission, unspecified (2) Tobacco abuse Current visit: Yes Status: Acute I advised smoking cessation. We will provide NicoDerm. (3) Migraine headache Current visit: Yes Status: Acute We will treat with Fioricet. Qualifiers: Migraine type: without aura Status migrainosus presence: without status migrainosus Intractability: not intractable Qualified Code(s): G43.009 - Migraine without aura, not intractable, without status migrainosus (4) Chest pain Current visit: No Status: Acute Patient reports a history of angina. Chest pain has typical features. She has risk factors. We will obtain a CT angiogram of the chest to rule out PE (initial tachycardia) and dissection given radiation to the back. I have obtained an EKG stat which I personally reviewed shows normal sinus rhythm at 85 bpm normal axis and intervals, no acute ST or T-wave changes. We will obtain echocardiogram, place patient on telemetry, trend troponin. Obtain stress test in the morning. Qualifiers: Chest pain type: intercostal pain Qualified Code(s): R07.82 - Intercostal pain (5) Anxiety Current visit: No Status: Chronic Continue with Valium. Internal Medicine - H&P: HPI Chief complaint: Chest pain Admitted From: Emergency Dept Plans for Post Hospital Care: Home History of present illness: Ms. Silva is a 42 year old female with past medical history significant for seizure disorder, migraine headaches, depression, anxiety, who came to the hospital for evaluation of chest pain. She started having severe sharp substernal chest pain yesterday at 3 PM, not associated with diaphoresis or shortness of breath. Pain radiates to the back, left shoulder and left side of the neck. She took 3 nitroglycerin tablets at home with no relief and therefore she came to the hospital. Per ER reports EKG was negative however an EKG is not available for review in her chart. Currently reports severe migraine , chest pain is mild. Review of systems: Pertinent for diarrhea, knee pain, back pain, seizures, depression and anxiety. The remainder of 10 point review of systems was negative Family history positive for stroke and heart disease in the patient's mother. Social history: Smokes 10 cigarettes a day, denies alcohol and drug use. Past Med Surg Social Fam HX - Past Medical History Medical history: COPD, GERD, hyperlipidemia, hypertension, migraine, seizures, other Psychiatric history: anxiety, depression, panic disorder, PTSD - Past Surgical History Surgical History: appendectomy, cholecystectomy, herniorrhaphy, hysterectomy, other - Social History Smoking Status: Current every day smoker Smokeless Tobacco Status: No Alcohol use: none Drug use: none - Family History Father Living Status: Still Living Hx Family Cardiac Disorders: Yes (pacemaker) Mother Hx Family Cardiac Disorders: Yes (atrial fibrillation) Internal Medicine - H&P: Meds FLUoxetine HCl [Prozac] 40 mg PO BID 01/15/16 [History] Buspirone HCl [Buspar] 30 mg PO BID PRN 05/28/16 [History] Budesonide/Formoterol 160/4.5 [Symbicort 160/4.5] 2 puff IH BIDR 04/22/17 [ History] Dicyclomine [Bentyl] 10 mg PO QID 04/22/17 [History] Diphenhydramine HCl [Z-Sleep] 25 mg PO DAILY PRN 04/22/17 [History] Ipratropium/Albuterol Neb [Duoneb] 3 ml IH Q6HR 04/22/17 [History] Omeprazole [PriLOSEC] 20 mg PO DAILY 04/22/17 [History] Ondansetron HCl 8 mg PO TID PRN 04/22/17 [History] Pravastatin Sodium 10 mg PO HS 04/22/17 [History] Quetiapine Fumarate [Seroquel] 50 mg PO TID 04/22/17 [History] Ziprasidone [Geodon] 20 mg PO HS 04/22/17 [History] diazePAM [Valium] 10 mg PO BID 04/22/17 [History] Gabapentin [Neurontin] 900 mg PO TID 05/17/17 [History] 3 Allergy/AdvReac Type Severity Reaction Status Date / Time haloperidol AdvReac Agitated Verified 03/23/17 11:16 All Systems PM: A 10-system review of systems was performed and is negative for pertinent findings except as documented above in the HPI. - Constitutional Vitals: Temp Pulse Resp BP Pulse Ox 97.5 F L 79 18 129/84 94 05/17/17 06:56 05/17/17 06:56 05/17/17 06:56 05/17/17 06:56 05/17/17 06:56 General appearance: Present: A&O X 3, severe distress (Due to pain and headache) - Eye Eye exam: Present: PERRL, conjuntiva pink, sclera anicteric Pupils: Present: PERRL - Respiratory Respiratory exam: Present: CTAB. Absent: accessory muscle use, rales, rhonchi, wheezes - Cardiovascular Cardiovascular exam: Present: RRR, +S1, +S2. Absent: diastolic murmur, gallop, rubs, systolic murmur - GI/Abdominal GI/Abdominal exam: Present: normal bowel sounds, soft, no peritoneal signs. Absent: distended, tenderness - Extremities Exam Extremities exam: Present: warm, radial pulses palpable and symmetrical. Absent : calf tenderness, cyanotic, pedal edema - Neurological Exam Neurological exam: Present: CN II-XII intact, oriented X3, no focal deficits. Absent: pronater drift, facial droop, speech deficit - Skin Skin exam: Present: dry, intact Internal Med - H&P Results - Labs CBC & Chem 7: 05/16/17 21:32 05/16/17 21:32
[2017-05-17] MEDS ORDERED: Ipratropium/Albuterol Neb 3 ML ONE (11:08)
[2017-05-17] MEDS ORDERED: *HR* FentaNYL (PF) 100 MCG/2 ML VIAL IVP PRN (11:24)
[2017-05-17] MEDS: Budesonide/Formoterol 160/4.5 MDI IH SCH ×2 (11:28→21:36)
[2017-05-17] MEDS: Ipratropium/Albuterol Neb 3 ML IH SCH ×3 (11:28→21:36)
[2017-05-17] MEDS: FLUoxetine 20 MG CAPSULE PO SCH ×2 (12:11→20:12)
[2017-05-17] MEDS: Gabapentin 300 MG CAPSULE PO SCH ×3 (12:11→20:11)
[2017-05-17] MEDS: Acetaminophen/Butalbital/CaffeineTABLET PO PRN ×2 (12:11→20:11)
[2017-05-17] MEDS: diazePAM 10 MG TABLET PO SCH ×2 (12:11→20:12)
[2017-05-17] MEDS ORDERED: Ziprasidone 20 MG CAPSULE PO SCH (21:00)
[2017-05-18] MEDS: Acetaminophen/Butalbital/CaffeineTABLET PO PRN (03:04)
[2017-05-18] MEDS: *HR* HYDROcodone/Acet 5/325 mg TABLET PO PRN (03:08)
[2017-05-18] MEDS: Ipratropium/Albuterol Neb 3 ML IH SCH (04:33)
[2017-05-18 06:35] LABS: BUN/Creatinine Ratio 21 (6-26); Blood Urea Nitrogen 16 mg/dL (6-20); Calcium 8.8 mg/dL (8.6-10.3); Carbon Dioxide 25 mEq/L (23-29); Chloride 109 mEq/L (98-107); Glucose 99 mg/dL (70-105); Osmolality,Calculated 293 (280-300); Potassium 3.5 mEq/L (3.5-5.1); Sodium 141 mEq/L (136-145); eGFR For African Americans > 60 (> 60); eGFR For Non-African Americans > 60 (> 60)
[2017-05-18 07:42] VITALS: BP 126/79
--- NOTE | 2017-05-18 09:27 | Discharge Summary ---
- NOTES TO OUTPATIENT PROVIDER Notes to Outpatient Provider: Patient will need a follow-up CT of the chest in January 2018. Patient will have an echocardiogram and stress test outpatient which should be followed up in the office. Orders not resulted at time of discharge: Pending orders 05/18/17 08:31 SP pharm nuclear stress Routine 05/18/17 08:32 EV echocardiogram Routine Date of Encounter: 05/18/17 Time of Encounter: 09:25 - Discharge Diagnosis (1) Depression Priority: Secondary Status: Acute Qualifiers: Depression Type: major depressive disorder Major depression recurrence: recurrent Active/Remission status: in remission of unspecified degree Qualified Code(s): F33.40 - Major depressive disorder, recurrent, in remission, unspecified (2) Tobacco abuse Priority: Secondary Status: Acute (3) Migraine headache Priority: Secondary Status: Acute Qualifiers: Migraine type: without aura Status migrainosus presence: without status migrainosus Intractability: not intractable Qualified Code(s): G43.009 - Migraine without aura, not intractable, without status migrainosus (4) Chest pain Priority: Primary Status: Acute Qualifiers: Chest pain type: intercostal pain Qualified Code(s): R07.82 - Intercostal pain (5) Anxiety Priority: Secondary Status: Chronic Hospital course: Ms. Silva is a 42 year old female with past medical history significant for seizure disorder, migraine headaches, depression, anxiety, who came to the hospital for evaluation of chest pain which she described as substernal, sharp severe pain that started the day before presentation. She took nitroglycerin at home with no relief. In the emergency department her initial EKG was nondiagnostic for ischemia. Troponin was negative. She was admitted for observation. Serial troponins were negative. Repeat EKG was negative. Given her history of smoking and chest pain pulmonary embolism was considered. She had a CT of the chest which found no evidence of PE or pneumonia. This study noted stable bilateral pulmonary nodules. Recommended repeat imaging in January 2018 in order to document 2 year stability. I have discussed this with the patient and she expressed understanding. A stress test and echocardiogram were ordered for this morning however the patient could not get the stress test due to pretreatment with Fioricet for migraine. The patient reports that her chest pain has resolved and requests to be discharged home this morning. I will order an outpatient stress test and echocardiogram to be done within 2 days of discharge. The patient is in agreement with the plan. I have advised complete smoking cessation. Discharge discussed with: patient, nurse Time spent discussing smoking cessation with patient: 3 to 10 minutes - Time Spent with Patient Total time spent providing and/or coordinating discharge services: Less than 30 minutes - Discharge Medications Home Medications: FLUoxetine HCl [Prozac] 40 mg PO BID 01/15/16 [History] Buspirone HCl [Buspar] 30 mg PO BID PRN 05/28/16 [History] Budesonide/Formoterol 160/4.5 [Symbicort 160/4.5] 2 puff IH BIDR 04/22/17 [ History] Dicyclomine [Bentyl] 10 mg PO QID 04/22/17 [History] Diphenhydramine HCl [Z-Sleep] 25 mg PO DAILY PRN 04/22/17 [History] Ipratropium/Albuterol Neb [Duoneb] 3 ml IH Q6HR 04/22/17 [History] Omeprazole [PriLOSEC] 20 mg PO DAILY 04/22/17 [History] Ondansetron HCl 8 mg PO TID PRN 04/22/17 [History] Pravastatin Sodium 10 mg PO HS 04/22/17 [History] Quetiapine Fumarate [Seroquel] 50 mg PO TID 04/22/17 [History] Ziprasidone [Geodon] 20 mg PO HS 04/22/17 [History] diazePAM [Valium] 10 mg PO BID 04/22/17 [History] Gabapentin [Neurontin] 900 mg PO TID 05/17/17 [History] Allergies/Adverse Reactions: 3 Allergy/AdvReac Type Severity Reaction Status Date / Time haloperidol AdvReac Agitated Verified 03/23/17 11:16 Date of admission: 05/16/17 23:08 Primary care physician: Minesh Terry CNP - Constitutional Vitals: Temp Pulse Resp BP Pulse Ox 98.0 F 86 15 126/79 93 05/18/17 07:41 05/18/17 07:41 05/18/17 07:41 05/18/17 07:41 05/18/17 07:41 General appearance: Present: A&O X 3, severe distress (Due to pain and headache) - Respiratory Respiratory exam: Present: CTAB. Absent: accessory muscle use, rales, rhonchi, wheezes - Cardiovascular Cardiovascular exam: Present: RRR, +S1, +S2. Absent: diastolic murmur, gallop, rubs, systolic murmur - Patient Status Disposition: Home, Self-Care Condition: Fair Functional capacity at discharge: independent ambulation Overall status at discharge: patient is back to baseline - Ambulatory Orders Ambulatory Orders: SP pharm nuclear stress Time Frame: 2 Days, Facility: [facility], Location: Cardiopulmonary Svc - Discharge Instructions Follow Up With: Minesh Terry CNP [Primary Care Provider] - Additional Instructions: Follow-up with your primary care physician within 5 days of discharge. Follow- up with [facility] for outpatient stress test and echocardiogram. Please follow-up with your PCP to have a repeat CAT scan of the chest on January 2018. - Diet and Activity Activity: increase activity as tolerated Diet: advance to your usual diet
--- NOTE | 2017-05-18 17:59 | Electrocardiograph Report ---
[place] [address] Test Date: 2017-05-17 Pat Name: Katie Ricardo Department: 114 Room: 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
--- NOTE | 2017-05-18 18:05 | Electrocardiograph Report ---
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
== END 2017-05-18 11:06 | disposition home or self-care (01) ==
LOC: EMEROO 21:06 → 3NENU 21:06 → SUATTDRO 23:08 → 3NENU 23:40
PROVIDERS: ADMIT Internal Medicine; ATTEND Internal Medicine

== ENCOUNTER 2019-10-28 20:33 | Observation (INO) ==
[2019-10-28] MEDS ORDERED: Ketorolac 15 MG/ML VIAL IVP ONE (21:13)
[2019-10-28] MEDS ORDERED: 0.9 % Sodium Chloride 1,000 ML IVC ONE ×2 (21:13→23:52)
[2019-10-28] MEDS ORDERED: Prochlorperazine 10 MG/2 ML VIAL IVP ONE (21:14)
[2019-10-28 22:01] LABS: Basophils # 0.1 K/mcL (0.0-0.2); Basophils % 0.8 %; Eosinophils # 0.9 K/mcL (0.0-0.6); Eosinophils % 9.2 %; Hematocrit 43.6 % (35.3-44.9); Hemoglobin 14.1 g/dL (11.5-15.4); Immature Granulocytes % 0.3 % (0-4); Lymphocytes # 3.1 K/mcL (0.6-4.6); Lymphocytes % 30.8 %; Mean Corpuscular HGB Conc 32.3 g/dL (31.6-35.5); Mean Corpuscular Hemoglobin 29.1 pg (28.0-33.3); Mean Corpuscular Volume 89.9 fL (83.0-100.0); Mean Platelet Volume 9.4 fL (9.4-12.4); Monocytes # 0.6 K/mcL (0.0-1.3); Monocytes % 5.9 %; Neutrophils # 5.3 K/mcL (1.6-8.9); Platelet Count 326 K/mcL (140-400); Red Blood Count 4.85 M/mcL (3.82-4.97); Red Cell Distribution Width 14.6 % (11.5-14.5)
[2019-10-28 22:21] LABS: BUN/Creatinine Ratio 14 (6-26); Blood Urea Nitrogen 12 mg/dL (6-20); Calcium 9.4 mg/dL (8.6-10.3); Carbon Dioxide 22 mEq/L (23-29); Chloride 109 mEq/L (98-107); Glucose 105 mg/dL (70-105); Osmolality,Calculated 286 (280-300); Potassium 3.7 mEq/L (3.5-5.1); Sodium 138 mEq/L (136-145); eGFR For African Americans > 60 (> 60); eGFR For Non-African Americans > 60 (> 60)
[2019-10-28] MEDS ORDERED: *HR* Promethazine 25 MG/ML VIAL IVP PRN (23:35)
[2019-10-28] MEDS ORDERED: Naloxone 0.4 MG/ML INJ IVP PRN ×2 (23:35→23:37)
[2019-10-28] MEDS ORDERED: Ondansetron 4 MG/2 ML VIAL IVP PRN (23:35)
[2019-10-28] MEDS ORDERED: Ketorolac 30 MG/ML VIAL IVP PRN (23:37)
[2019-10-28] MEDS ORDERED: 0.9 % Sodium Chloride 1,000 ML IVC SCH (23:45)
[2019-10-29 02:13] LABS: Hematocrit 37.6 % (35.3-44.9); Mean Corpuscular HGB Conc 31.6 g/dL (31.6-35.5); Mean Corpuscular Hemoglobin 28.6 pg (28.0-33.3); Mean Corpuscular Volume 90.4 fL (83.0-100.0); Mean Platelet Volume 9.8 fL (9.4-12.4); Platelet Count 278 K/mcL (140-400); Red Blood Count 4.16 M/mcL (3.82-4.97); Red Cell Distribution Width 14.6 % (11.5-14.5); White Blood Count 11.3 K/mcL (4.3-11.1)
[2019-10-29 02:15] LABS: Hemoglobin 11.9 g/dL (11.5-15.4)
[2019-10-29 02:18] LABS: BUN/Creatinine Ratio 16 (6-26); Blood Urea Nitrogen 12 mg/dL (6-20); Calcium 8.1 mg/dL (8.6-10.3); Carbon Dioxide 18 mEq/L (23-29); Chloride 113 mEq/L (98-107); Glucose 92 mg/dL (70-105); Osmolality,Calculated 289 (280-300); Sodium 140 mEq/L (136-145); eGFR For African Americans > 60 (> 60); eGFR For Non-African Americans > 60 (> 60)
[2019-10-29] MEDS ORDERED: ARIPiprazole 2 MG TABLET PO SCH (03:45)
[2019-10-29] MEDS ORDERED: Topiramate 100 MG TABLET PO SCH (03:45)
[2019-10-29] MEDS: Gabapentin 300 MG CAPSULE PO SCH ×2 (04:01→08:49)
[2019-10-29] MEDS ORDERED: lisinopriL 10 MG TABLET PO SCH (09:00)
[2019-10-29] MEDS ORDERED: FLUoxetine 20 MG CAPSULE PO SCH (09:00)
[2019-10-29 11:54] VITALS: BP 109/71
== END 2019-10-29 14:07 | disposition left against medical advice (07) ==
LOC: 3BNU 20:33 → EMEROOARM 20:33 → SUATTDRO 10-29 00:07 → 3BNU 10-29 00:55
PROVIDERS: ADMIT Student in an Organized Health Care Education/Training Program; ATTEND Nurse Practitioner Adult Health